=== PATIENT | female | born 1990 | race Two or more races ===

== ENCOUNTER 2024-04-04 16:31 | Emergency (ER) | payer MEDICAID ==
[~2024-04-04] VITALS: Ht 165.1 cm; Wt 72.5 kg
[2024-04-04 17:03] LABS: URINE HCG NEGATIVE (NEG)
[2024-04-04 17:14] LABS: COLOR,URINE ORANGE (Yellow); UA COLLECTION TYPE CLN CATCH MIDSTREAM
[2024-04-04 17:15] LABS: CLARITY,URINE SLIGHTLY CLOUDY (Clear)
[2024-04-04 17:17] LABS: BACTERIA,URINE 1+ /HPF (Neg)
[2024-04-04 17:18] LABS: MUCUS STRANDS FEW /LPF (Neg); SQUAMOUS EPITHELIAL CELL,UR FEW /LPF (FEW); WBC,URINE 30-50 /HPF (0-4)
[2024-04-04] MEDS ORDERED: METR-159 PO (17:37)
[2024-04-04 17:46] VITALS: BP 121/84; PULSE 66; RESP 15; TEMP 98.1; O2SAT 99
== END 2024-04-04 17:46 | disposition home or self-care (01) ==
LOC: ER 16:32
DX: N76.0 Acute vaginitis (principal); B96.89 Other specified bacterial agents as the cause of diseases classified elsewhere; Z79.899 Other long term (current) drug therapy
CPT/HCPCS: 81001; 81025; 87088; 99283

== ENCOUNTER 2024-05-29 17:20 | Emergency (ER) | payer MEDICAID ==
[~2024-05-29] VITALS: Ht 170.2 cm; Wt 68.0 kg
[2024-05-29 18:25] LABS: BILIRUBIN,URINE NEGATIVE (Neg); CLARITY,URINE SLIGHTLY CLOUDY (Clear); COLOR,URINE YELLOW (Yellow); GLUCOSE, URINE NEGATIVE (Neg); KETONES,URINE NEGATIVE (Neg); LEUKOCYTE ESTERASE ,URINE TRACE (Neg); NITRITES, URINE NEGATIVE (Neg); OCCULT BLOOD,URINE NEGATIVE (Neg); PH,URINE 6.5 (4.8-8.0); PROTEIN,URINE NEGATIVE (Neg); URINE HCG NEGATIVE (NEG); UROBILINOGEN,URINE 0.2 E.U/dL (0.2-1.0)
[2024-05-29 18:32] LABS: UA COLLECTION TYPE CLN CATCH MIDSTREAM
[2024-05-29 18:41] LABS: BACTERIA,URINE FEW /HPF (Neg); MUCUS STRANDS FEW /LPF (Neg); RBC,URINE 0-2 /HPF (0-2); SQUAMOUS EPITHELIAL CELL,UR FEW /LPF (FEW)
[2024-05-29 18:42] LABS: TRANSITIONAL EPI CELLS,URINE FEW /HPF
[2024-05-29] MEDS ORDERED: CEPH-585 PO (18:53)
[2024-05-29] MEDS ORDERED: PHEN-716 PO (18:55)
[2024-05-29] MEDS: CefTRIAXone 1000mg IM Kit (w/lidocaine diluent) IM ONE (19:11)
[2024-05-29 19:12] VITALS: BP 134/76; PULSE 78; RESP 18; TEMP 97; O2SAT 98
== END 2024-05-29 19:18 | disposition home or self-care (01) ==
LOC: ER 17:20
DX: N39.0 Urinary tract infection, site not specified (principal); Z79.2 Long term (current) use of antibiotics
CPT/HCPCS: 81001; 81025; 87088; 96372; 99283; J0696

== ENCOUNTER 2024-08-16 20:55 | Emergency (ER) | payer MEDICAID ==
[~2024-08-16] VITALS: Ht 165.1 cm; Wt 72.7 kg
[~2024-08-16 20:55] MED LIST: PHEN-716 PO
[2024-08-16 21:17] LABS: BASOPHILS % (AUTO) 0.5 % (0-1); EOSINOPHILS # (AUTO) 0.2 X10'3 (0-0.9); EOSINOPHILS % (AUTO) 2.8 % (0-6); HEMATOCRIT 36.8 % (35.0-45.0); HEMOGLOBIN 12.3 g/dl (12.0-16.0); LYMPHOCYTES # (AUTO) 2.8 X10'3 (1.1-4.8); MEAN CORPUSCULAR HGB CONC 33.4 g/dL (33.0-36.5); MEAN PLATELET VOLUME 10.3 FL (7.4-10.4); MONOCYTES # (AUTO) 0.7 X10'3 (0-0.9); MONOCYTES % (AUTO) 8.6 % (2-12); NEUTROPHILS # (AUTO) 4.5 X10'3 (1.8-7.7); NEUTROPHILS % (AUTO) 54.1 % (42-75); PLATELET COUNT 209 X10'3 (140-440); RED BLOOD COUNT 4.39 X10'6 (4.20-5.60); RED CELL DISTRIBUTION WIDTH 13.9 % (11.5-14.5); WHITE BLOOD COUNT 8.2 X10'3 (4.5-11.0)
[2024-08-16 21:18] VITALS: TEMP 98
[2024-08-16 21:33] LABS: ALANINE AMINOTRANSFERASE 24 U/L (12-78); ALBUMIN 3.7 G/DL (3.4-5.0); ALBUMIN/GLOBULIN RATIO 1.1 (1.1-1.5); ALKALINE PHOSPHATASE 47 IU/L (46-116); ANION GAP 6 (8-16); ASPARTATE AMINO TRANSFERASE 16 U/L (10-37); BILIRUBIN,TOTAL 0.7 MG/DL (0.1-1.0); BLOOD UREA NITROGEN 12 MG/DL (7-18); BUN/CREATININE RATIO 17.1 (10.0-20.0); CALCIUM 8.5 MG/DL (8.5-10.1); CHLORIDE 106 MMOL/L (99-107); GLUCOSE 99 MG/DL (70-104); POTASSIUM 3.8 MMOL/L (3.5-5.1); SODIUM 139 MMOL/L (135-145); eCRCL 100 ML/MIN; eGFR > 90 ML/MIN
[2024-08-16 21:40] LABS: PRO BRAIN NATRIURETIC PEPTIDE 61 PG/ML (0-125)
[2024-08-16 21:46] LABS: LIPASE 33 U/L (16-77)
[2024-08-16 22:07] LABS: BILIRUBIN,URINE NEGATIVE (Neg); CLARITY,URINE CLEAR (Clear); COLOR,URINE YELLOW (Yellow); GLUCOSE, URINE NEGATIVE (Neg); KETONES,URINE NEGATIVE (Neg); LEUKOCYTE ESTERASE ,URINE NEGATIVE (Neg); NITRITES, URINE NEGATIVE (Neg); OCCULT BLOOD,URINE SMALL (Neg); PH,URINE 7.5 (4.8-8.0); PROTEIN,URINE NEGATIVE (Neg); UROBILINOGEN,URINE 0.2 E.U/dL (0.2-1.0)
[2024-08-16 22:12] LABS: UA COLLECTION TYPE CLN CATCH MIDSTREAM
[2024-08-16 22:13] LABS: BACTERIA,URINE FEW /HPF (Neg); SQUAMOUS EPITHELIAL CELL,UR FEW /LPF (FEW); WBC,URINE 0-4 /HPF (0-4)
[2024-08-16 22:14] LABS: MUCUS STRANDS NONE SEEN /LPF (Neg); RBC,URINE 0-2 /HPF (0-2)
[2024-08-16] MEDS ORDERED: OMEP40CA21 PO (22:33)
[2024-08-16] MEDS: mag hydrox/Alum hydrox/simeth 30ml oral suspension PO ONE (22:44)
[2024-08-16 22:50] VITALS: BP 117/79; PULSE 60; RESP 16; O2SAT 98
== END 2024-08-16 22:53 | disposition home or self-care (01) ==
LOC: ER 20:56
DX: R06.00 Dyspnea, unspecified (principal); R10.13 Epigastric pain; Z79.899 Other long term (current) drug therapy
CPT/HCPCS: 36415; 71045; 80053; 81001; 83690; 83880; 84484; 85025; 85379; 93005; 99285

== ENCOUNTER → 2025-09-07 | Emergency (ER) | payer MEDICAID ==
[~2025-09-07] VITALS: Ht 165.1 cm; Wt 77.3 kg
[~2025-09-07] MED LIST changes: +IBUP-1986 PO
[2025-09-07 12:58] VITALS: BP 147/91; PULSE 61; RESP 16; TEMP 98.4; O2SAT 100
--- NOTE | 2025-09-07 13:56 | Physician Documentation ---
History of Present Illness ~ Chief Complaint: Headache Stated Complaint: HEADACHE NOT FEELING WELL Time Seen by MD: 12:57 Primary Medical Doctor: [facility] HPI This is a 35-year-old female who presents with left-sided headache for the past two days, patient reports associated nausea and sensitivity to light, reports that she frequently has headaches like this at least twice a month and reports that they are worse with stress. Patient reports no other acute symptoms or concerns including no fever. Medication Reconciliation Allergies: Coded Allergies: No Known Allergies (Unverified , 08/16/24) Scheduled Ibuprofen (Ibuprofen), 1 TAB PO Q8H Phenazopyridine HCl (Pyridium), 1 TAB PO Q8H Past Medical History Past Medical History: No Pertinent History Review of Systems ROS As stated above in the HPI, otherwise all systems are reviewed and negative. Physical Exam Vital Signs: Temperature: 98.4, Source: Oral, Heart Rate: 61, Respiratory Rate: 16, BP: 147/91, Pulse Oximetry: 100, Weight: 77.270 Oxygen Flow Rate: 0 Physical Exam VITALS: Reviewed and as above. GENERAL: Alert, nontoxic appearing, no apparent distress. HEENT: PERRLA, EOMI, no meningeal signs, bilateral TMs clear, bilateral auditory canals nonerythematous, clear, and nontender RESPIRATORY: No increased work of breathing, no respiratory distress, speaking in full clear sentences NEURO: No slurred speech, no facial droop, no focal motor weakness, no gait disturbance Progress Results/Orders Results/Orders Completed Orders - JACQUELINE SMITH Prochlorperazine Inj (Compazine Inj) (09/07/25 13:50) Diphenhydramine Capsule (Benadryl Capsul (09/07/25 13:50) Dexamethasone Inj (Decadron 10mg/Ml Inj) (09/07/25 13:48) Ketorolac Trometh 15mg/Ml Vial (Toradol (09/07/25 13:50) Medications Received in ER Medications (Trade) Dose Ordered Sig/Marcos Route PRN Reason Start Time Stop Time Status Last Admin Dose Admin (Compazine inj) 10 mg ONCE ONCE IM 09/07/25 13:50 09/07/25 13:51 DC 09/07/25 13:57 10 MG (Benadryl capsule) 25 mg ONCE ONCE PO 09/07/25 13:50 09/07/25 13:51 DC 09/07/25 13:58 25 MG (Decadron 10mg/ ml inj) 10 mg ONCE STAT PO 09/07/25 13:48 09/07/25 13:50 DC 09/07/25 13:57 10 MG (Toradol injection) 15 mg ONCE ONCE IM 09/07/25 13:50 09/07/25 13:51 DC 09/07/25 13:58 15 MG Vital Signs 09/07/25 09/07/25 10:23 12:58 Temp 98.4 98.4 Pulse 63 61 Resp 16 16 B/P (MAP) 138/90 147/91 (109) Pulse Ox 100 100 O2 Flow Rate 0 0 Medical Decision Making Additional information obtaine: N/A Findings This otherwise well-appearing 35-year-old female presented with two days of unilateral headache with nausea and light sensitivity, it is reassuring patient reports similar headaches in the past. Headache described as unilateral with associate photophobia, and nausea without vomiting consistent with migraine headache. It is reassuring headache is not: a first headache or change from normal headache, of sudden onset, described as thunderclap or worst ever, worse with exertion, was not a result of significant trauma and does not have associated fever and/or nuchal rigidity to suggest meningitis or focal motor and/or sensory deficits to suggest CVA, intracranial hemorrhage, or mass. Patient is otherwise well appearing, non-toxic, and well hydrated. Pain con trolled in department. Physical exam benign. Vital signs stable and patient is appropriate for outpatient follow up. Patient instructed to follow up with primary care provider for further workup of migraine and or other complex headache syndromes. Patient provided home care instructions return to care precautions, and follow up instructions which she verbalized understanding of. Differential Dx:Considerations: Include: EDWARD-Cluster, EDWARD-Migraine, EDWARD- Hypertensive, EDWARD-Muscular contraction, EDWARD-Post lumbar puncture, Carbon monoxide toxicity, Close head injuyr, CVA, Fever induced, Hemorrhage-Epidural, Hemorrhage-Intracerebral, Hemorrhage-Subarachnoid, Hemorrhage-Subdural, Mass lesion, Meningitis, Post-traumtic, Pseudotumor cerebri, Sinusitis, Temporal arteritis, Trigeminal neuralgia Departure Disposition: 01 HOME / SELF CARE / HOMELESS Impression: Primary Impression: Headache Qualified Codes: R51.9 - Headache, unspecified Condition: Improved Discharge Instructions: Headache Additional Instructions: Please use the medications as prescribed, do not take the ibuprofen for the next 10 hours as you received a Toradol injection in the emergency department which replaces this medication. Please follow up with your primary care provider in the next few days workup of complex headache syndromes further management of these recurrent headaches. Please return to the emergency department for any new or worsening concerning symptoms. Prescriptions Ibuprofen (Ibuprofen) 800 Mg Tablet 1 TAB PO Q8H for pain for 10 Days, #30 TAB 0 Refills Prov: JACQUELINE SMITH 09/07/25 Education Educated: Patient Educated regarding: diagnosis, treatment, prognosis, need for follow up Signature Scribe Signature: No scribe Attestation: The note accurately reflects work and decisions made by me.SHERRY Chen 09/07/25 20:57 JACQUELINE SMITH Sep 07, 2025 13:56
[2025-09-07] MEDS: dexamethasone sod phosphate 10mg/ml inj PO STA (13:57)
[2025-09-07] MEDS: ketorolac trometh 15mg/ml vial 15 MG/ML ML IM ONE (13:58)
== END | disposition home or self-care (01) ==
LOC: ER 10:16
DX: R51.9 Headache, unspecified (principal); R11.0 Nausea; Z79.899 Other long term (current) drug therapy
CPT/HCPCS: 96372; 99284; J0780; J1100; J1885; Q0163